=== PATIENT | male | born 1970 | race Caucasian/White ===

== ENCOUNTER 2017-10-21 10:37 | Emergency (ER) | payer MEDICAID ==
[2016-08-17 12:41] VITALS: Wt 112.7 kg
[~2017-10-21 10:37] MED LIST: ACET-2043 PO; ALB18R INH; ALBU2.5V36 IH; ALBU8.5H12 IH; ALL100 PO; ALLO-119 PO; AMLO-96 PO; AMOX-559 PO; AMOX500T10 PO; AMOX875T60 PO; ATOR10TA24 PO; AZI250 PO; AZIT-1 PO; BACL-51 PO; CEPH-13 PO; CEPH500T7 PO; CLI150 PO; COL0.6 PO; COLC0.6T42 PO; CYCL10TA29 PO; ESC10 PO; ESOM40CA42 PO; EYE ANTIBIOTIC OP; GABA-547 PO; HYDR-2966 PO; HYDR-3250 PO; HYDR-3503 PO; HYDR-4309 PO; IBUP800T37; IBUP800T37 PO; INDO-1 PO; INDO25OR3 PO; INDO50CA92 PO; KET10 PO; LAMO100T56 PO; LAMO25TA64 PO; LINA290C PO; LISI-362 PO; LOR5/325 PO; MELO-149 PO; MIRT-17 PO; MULT-893 PO; OMEP-114 PO; OMEP-125 PO; ONDA4TAB97 PO; OXYC-865 PO; PAN40 PO; PHEN100 PO; PHEN100C82 PO; PRED-1 PO; PRED20TA6 PO; PROM-110 PO; RANI-324 PO; ROBC PO; SEIZURE MEDS PO; SUMA100T32 PO; SUMA100T33 PO; TOBOD OS; TOBOO OD; TOPI100C; TRAM-420 PO; TRAZ-133 PO; TRAZ-163 PO; TRIC15T TOP; VENL-10 PO; VENL150C61 PO; VENL75CA4; VENL75CA4 PO; VENL75CA58 PO; [UNRECOGNIZED DRUG - CODE] PO
--- NOTE | 2017-10-21 11:23 | ER Report ---
History and Physical Time Seen By MD: 11:02 Hx. of Stated Complaint: CHEST PAIN SINCE 4:30AM HPI/ROS CHIEF COMPLAINT: Chest pain HISTORY OF PRESENT ILLNESS: 47 year old male presents with concern of right chest pain and RUQ pain. Reports onset 0430 AM today of chest pain with nonproductive, dry cough. Reports diaphoresis, palpitations, denies radiating pain. Pain increases with inspiration. Patient experiences episodes of lightheadedness x6 days. Describes pain as "someone pushing on my chest" and "tight". Reports nausea and diarrhea x5 days, reports black stools. Reports history of acid reflux, pneumonia. REVIEW OF SYSTEMS: Respiratory: Nonproductive, dry cough. Right chest pain increases with inspiration. Cardiovascular: Reports palpitations, diaphoresis, increased chest pressure. Gastrointestinal: Reports vomiting, diarrhea, black in appearance, RUQ pain. History of acid reflux. Musculoskeletal: Reports chronic lower back pain. Denies increased chest pain with movement. 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 10/21/17 Reported Medications Mirtazapine (REMERON) 15 Mg Tab.rapdis, 15 MG PO QHS 08/15/17 Gabapentin (GABAPENTIN) 100 Mg Capsule, 1 TAB PO TID 01/08/17 Past Medical/Surgical History Family history of cancer, coronary artery disease, Hx Smoking: No Smoking Status: Never Smoker Exposure to Second Hand Smoke?: No Hx Substance Use Disorder: No Hx Alcohol Use: Yes (says rarely, did today because of of sister) Constitutional Vital Sign - Last 24 Hours 10/21/17 10/21/17 10/21/17 10/21/17 10:39 10:41 10:52 11:00 Temp 97.4 Pulse 67 69 Resp 18 19 B/P (MAP) 147/94 (111) 147/94 135/98 (110) Pulse Ox 93 94 O2 Delivery Room Air 10/21/17 10/21/17 10/21/17 10/21/17 11:07 11:22 11:30 11:37 Pulse 69 73 72 Resp 14 14 11 B/P (MAP) 127/95 (106) Pulse Ox 92 95 94 10/21/17 10/21/17 10/21/17 10/21/17 12:00 12:07 12:08 12:13 Pulse 71 71 Resp 17 19 B/P (MAP) 123/91 (102) 127/97 (107) Pulse Ox 92 91 10/21/17 10/21/17 10/21/17 10/21/17 12:28 12:30 12:35 12:36 Pulse 73 Resp 19 B/P (MAP) 137/94 (108) 134/87 (103) 126/96 (106) Pulse Ox 91 10/21/17 10/21/17 10/21/17 10/21/17 12:37 12:40 12:43 12:58 Pulse 79 69 70 81 83 Resp 18 19 B/P (MAP) 125/95 (105) 134/87 (103) 126/96 (106) 125/95 (105) Pulse Ox 92 92 10/21/17 210/21/17 10/21/17 13:00 13:13 13:28 13:30 Pulse 67 69 Resp 17 18 B/P (MAP) 132/93 (106) 129/91 (104) Pulse Ox 91 91 Physical Exam General Appearance: The patient is alert, has no immediate need for airway protection and no current signs of toxicity. Eyes: Pupils equal and round no injection. ENT: posterior pharynx pink, tonsils +1 bilaterally, no exudates. No lymphadenopathy. Respiratory: lungs are clear to auscultation. Lung sounds diminished right lobes, anterior and posterior. No wheezing, crackles, rhonchi. Cardiac: regular rate and rhythm, no murmurs, gallops, rubs. Gastrointestinal: Bowel sounds hypoactive all quadrants. Abdomen is soft with RUQ tenderness, no masses. Scattered sounds of tympany and dullness to percussion. Duarte sign negative. Negative hepatosplenomegaly. Musculoskeletal: TTP right anterior chest wall. Skin: No rashes or lesions. DIFFERENTIAL DIAGNOSIS: After history and physical exam differential diagnosis was considered for costochondritis, pneumonia, hepatic inflammation, cholecystitis. Medical Decision Making Data Points Result Diagram: 10/21/17 1054 10/21/17 1054 Laboratory Hematology Test 10/21/17 00:00 10/21/17 10:54 Stool Occult Blood (IFOB) Negative (NEGATIVE) Red Blood Count 5.61 M/uL (4.00-5.60) Mean Corpuscular Volume 90.5 fL (80.0-96.0) Mean Corpuscular Hemoglobin 31.3 pg (26.0-33.0) Mean Corpuscular Hemoglobin Concent 34.5 g/dL (32.0-36.0) Red Cell Distribution Width 14.5 % (11.5-14.5) Mean Platelet Volume 8.2 fL (7.2-11.1) Neutrophils (%) (Auto) 51.4 % (39.4-72.5) Lymphocytes (%) (Auto) 35.0 % (17.6-49.6) Monocytes (%) (Auto) 10.6 % (4.1-12.4) Eosinophils (%) (Auto) 2.4 % (0.4-6.7) Basophils (%) (Auto) 0.6 % (0.3-1.4) Nucleated RBC Relative Count (auto) 0.1 /100WBC Neutrophils # (Auto) 5.0 K/uL (2.0-7.4) Lymphocytes # (Auto) 3.4 K/uL (1.3-3.6) Monocytes # (Auto) 1.0 K/uL (0.3-1.0) Eosinophils # (Auto) 0.2 K/uL (0.0-0.5) Basophils # (Auto) 0.1 K/uL (0.0-0.1) Nucleated RBC Absolute Count (auto) 0.01 K/uL Sodium Level 136 mmol/L (137-145) Potassium Level 3.5 mmol/L (3.5-5.0) Chloride Level 101 mmol/L (98-107) Carbon Dioxide Level 21 mmol/L (22-30) Blood Urea Nitrogen 11 mg/dl (9-21) Creatinine 0.90 mg/dl (0.66-1.25) Glomerular Filtration Rate Calc > 60.0 Random Glucose 149 mg/dl (75-110) Calcium Level 9.8 mg/dl (8.4-10.2) Total Bilirubin 0.9 mg/dl (0.2-1.3) Aspartate Amino Transf (AST/SGOT) 37 U/L (0-35) Alanine Aminotransferase (ALT/SGPT) 58 U/L (0-56) Alkaline Phosphatase 80 U/L (0-126) Troponin I < 0.012 ng/ml C-Reactive Protein < 0.5 mg/dl (<1.0) Total Protein 7.4 gm/dl (6.3-8.2) Albumin 3.9 g/dl (3.5-5.0) Amylase Level < 30 U/L (0-110) Lipase 120 U/L (23-300) Chemistry Test 10/21/17 00:00 10/21/17 10:54 Stool Occult Blood (IFOB) Negative (NEGATIVE) White Blood Count 9.8 k/uL (4.5-11.0) Red Blood Count 5.61 M/uL (4.00-5.60) Hemoglobin 17.6 g/dL (14.0-18.0) Hematocrit 50.8 % (42.0-52.0) Mean Corpuscular Volume 90.5 fL (80.0-96.0) Mean Corpuscular Hemoglobin 31.3 pg (26.0-33.0) Mean Corpuscular Hemoglobin Concent 34.5 g/dL (32.0-36.0) Red Cell Distribution Width 14.5 % (11.5-14.5) Platelet Count 283 K/uL (150-450) Mean Platelet Volume 8.2 fL (7.2-11.1) Neutrophils (%) (Auto) 51.4 % (39.4-72.5) Lymphocytes (%) (Auto) 35.0 % (17.6-49.6) Monocytes (%) (Auto) 10.6 % (4.1-12.4) Eosinophils (%) (Auto) 2.4 % (0.4-6.7) Basophils (%) (Auto) 0.6 % (0.3-1.4) Nucleated RBC Relative Count (auto) 0.1 /100WBC Neutrophils # (Auto) 5.0 K/uL (2.0-7.4) Lymphocytes # (Auto) 3.4 K/uL (1.3-3.6) Monocytes # (Auto) 1.0 K/uL (0.3-1.0) Eosinophils # (Auto) 0.2 K/uL (0.0-0.5) Basophils # (Auto) 0.1 K/uL (0.0-0.1) Nucleated RBC Absolute Count (auto) 0.01 K/uL Glomerular Filtration Rate Calc > 60.0 Calcium Level 9.8 mg/dl (8.4-10.2) Total Bilirubin 0.9 mg/dl (0.2-1.3) Aspartate Amino Transf (AST/SGOT) 37 U/L (0-35) Alanine Aminotransferase (ALT/SGPT) 58 U/L (0-56) Alkaline Phosphatase 80 U/L (0-126) Troponin I < 0.012 ng/ml C-Reactive Protein < 0.5 mg/dl (<1.0) Total Protein 7.4 gm/dl (6.3-8.2) Albumin 3.9 g/dl (3.5-5.0) Amylase Level < 30 U/L (0-110) Lipase 120 U/L (23-300) EKG/Imaging EKG Interpretation 12 lead EKG: Rhythm: normal sinus rhythm with a ventricular rate of 68 bpm [place]: normal QRS: normal ST segments: normal Imaging Exam type: CHEST PA AND LAT History: right chest pain Comparison: 01/08/2017. Findings: Both lungs are well-expanded and clear. There is no focal consolidation, pleural effusion or pneumothorax. Heart size is normal. The osseous structures are unremarkable. IMPRESSION: 1. No acute cardiopulmonary disease. Report Dictated By: Aydin Mancuso MD at 10/21/2017 12:12 PM Report E-Signed By: Aydin Mancuso MD at 10/21/2017 12:13 PM ED Course/Re-evaluation ED Course Patient was admitted in exam room, history and physical were obtained. Differential diagnoses were considered. On examination patient does have right- sided chest pain. He is tender to palpation. A CBC, CMP, troponin, EKG, chest x- ray, occult stool were done. The EKG showed normal sinus rhythm, the lab results were unremarkable. Occult stool was also negative. Patient stated even having black stools for the past several days. On exam the stool appeared to be normal color. We discussed the findings with the patient. We believe this is likely costochondritis as patient does have tenderness especially between ribs 7 and 8 on the right side. We will place him on diclofenac which he is to take twice a day for the next 10 days. Patient is to ice the ribs for 15-20 minutes. Patient verbalized understanding and agreement with plan. Decision to Disposition Date: Oct 21, 2017 Decision to Disposition Time: 13:38 Depart Departure Latest Vital Signs Vital Signs Date Time Temp Pulse Resp B/P (MAP) Pulse Ox O2 Delivery O2 Flow Rate FiO2 10/21/17 13:30 129/91 (104) 10/21/17 13:28 69 18 91 10/21/17 10:41 97.4 Room Air Impression: Primary Impression: Costochondritis, acute Condition: Improved Disposition: HOME OR SELF-CARE Referrals: MARCELLO JENNINGS MD (PCP) New Scripts Diclofenac Sodium (DICLOFENAC SODIUM) 75 Mg Tablet. 75 MG PO BID for 10 Days, #20 TAB Prov: ZULY WILLSON 10/21/17 Patient Instructions: Costochondritis (ED) Additional Instructions: Take prescribed diclofenac twice a day for 7-10 days for inflammation. Recommend icing affected area as needed. Follow up with your primary care provider next week. ZULY WILLSON Oct 21, 2017 11:23
[2017-10-21 12:06] LABS: PLATELET COUNT, AUTOMATED 283 K/uL (150-450)
--- NOTE | 2017-10-21 12:18 | RADIOLOGY IMAGING REPORT ---
FACILITY: [facility] PATIENT NAME: Channing Snyder : 1970 MR: [id number] V: [id number] EXAM DATE: ORDERING PHYSICIAN: ZULY WILLSON TECHNOLOGIST: Location: [facility] [place] Patient: Channing Snyder : 1970 Visit/Account:[id number] Date of Sevice: 10/21/2017 Exam type: CHEST PA AND LAT History: right chest pain Comparison: 01/08/2017. Findings: Both lungs are well-expanded and clear. There is no focal consolidation, pleural effusion or pneumoth orax. Heart size is normal. The osseous structures are unremarkable. IMPRESSION: 1. No acute cardiopulmonary disease. Report Dictated By: Aydin Mancuso MD at 10/21/2017 12:12 PM Report E-Signed By: Aydin Mancuso MD at 10/21/2017 12:13 PM [id number]
--- NOTE | 2017-10-21 12:55 | EKG ---
FACILITY: [facility] PATIENT NAME: CHAVA STEVE : [id number] MR: [id number] V: [id number] EXAM DATE: ORDERING PHYSICIAN: ZULY WILLSON TECHNOLOGIST: LORENA Dickerson Reason : CARDIAC Blood Pressure : / mmHG Vent. Rate : 068 BPM Atrial Rate : 068 BPM P-R Int : 144 ms QRS Dur : 098 ms QT Int : 396 ms P-R-T Axes : 035 021 -18 degrees QTc Int : 421 ms Normal sinus rhythm Nonspecific T wave changes inferolaterally When compared with ECG of 12-AUG-2017 10:23, Previous ECG has undetermined rhythm, needs review Confirmed by ETELVINA ANDRADE ([id number]) on 10/21/2017 3:28:00 PM Referred By: HOSEA Confirmed By:ETELVINA ANDRADE
[2017-10-21 13:30] VITALS: BP 129/91
[2017-10-21] MEDS ORDERED: DICL-195 PO (13:38)
== END 2017-10-21 13:47 | disposition home or self-care (01) ==
LOC: ER 11:11
DX: M94.0 Chondrocostal junction syndrome [Tietze] (principal)
CPT/HCPCS: 71046; 82040; 82150; 82247; 82274; 82310; 82374; 82435; 82565; 82947; 83690; 84075; 84132; 84155; 84295; 84450; 84460; 84484; 84520; 85025; 86140; 93005; 99284

== ENCOUNTER 2018-01-18 17:44 | Emergency (ER) | payer MEDICAID ==
[2016-08-17 12:41] VITALS: Wt 115.2 kg
[~2018-01-18 17:44] MED LIST changes: +DICL-195 PO; -RANI-324 PO; +RANI-366 PO; -TOPI100C; +TOPI100C6
[2018-01-18] MEDS ORDERED: NS(*) 0.9% 1000 ML BAG 1,000 ML IV ONE (18:02)
--- NOTE | 2018-01-18 18:02 | ER Report ---
History and Physical Time Seen By MD: 17:55 Hx. of Stated Complaint: Pt states he isnt able to keep anything down for six days, including his seizure medication. Pt reports a fever earlier. Currently afebrile. HPI/ROS CHIEF COMPLAINT: vomiting, abdominal pain HISTORY OF PRESENT ILLNESS: This is a 47 year old male. He has been having abdominal pain and nausea/vomiting. Seems to have this for the last few days where he has been unable to keep food and liquids down. Has not been feeling well for almost a week. Having diarrhea today. May have had fevers off and on. No current fever. He has no pain with urination. Mild cough, but no shortness of breath or chest pain. REVIEW OF SYSTEMS: Constitutional: As above. Eyes: No vision changes. ENT: No sore throat. No congestion. Cardiovascular: No palpitations. Respiratory: As above. Gastrointestinal: As above. Genitourinary: As above. Musculoskeletal: Diffuse musculoskeletal pain. Skin: No rashes. Neurological: No numbness. No weakness. Allergies: Coded Allergies: tramadol (Verified Allergy, Mild, RASH, 10/21/17) Home Meds Active Scripts Ondansetron (ZOFRAN ODT) 4 Mg Tab.rapdis, 4 MG PO Q6H Y for NAUSEA/VOMITING, # 20 TAB.PRASHANTH 0 Refills Prov:ERNESTO GUZMAN MD 01/18/18 Diclofenac Sodium (DICLOFENAC SODIUM) 75 Mg Tablet.dr, 75 MG PO BID for 10 Days , #20 TAB Prov:ZULY WILLSON [facility] 10/21/17 Reported Medications Mirtazapine (REMERON) 15 Mg Tab.rapdis, 15 MG PO QHS 08/15/17 Gabapentin (GABAPENTIN) 100 Mg Capsule, 1 TAB PO TID 01/08/17 Reviewed Nurses Notes: Yes Hx Smoking: No Smoking Status: Never Smoker Exposure to Second Hand Smoke?: No Hx Substance Use Disorder: No Hx Alcohol Use: Yes (says rarely, did today because of of sister) Constitutional Vital Sign - Last 24 Hours 01/18/18 01/18/18 01/18/18 01/18/18 17:51 17:52 17:54 17:59 Temp 98.1 Pulse 90 100 Resp 16 B/P (MAP) 135/89 (104) 135/89 129/100 (110) Pulse Ox 91 89 O2 Delivery Room Air 01/18/18 01/18/18 01/18/18 01/18/18 18:00 18:14 18:29 18:30 Pulse 92 90 B/P (MAP) 131/91 (104) 125/91 (102) Pulse Ox 91 91 01/18/18 01/18/18 01/18/18 01/18/18 18:44 18:59 19:00 19:14 Pulse 87 86 B/P (MAP) 124/95 (105) Pulse Ox 93 93 94 01/18/18 01/18/18 01/18/18 01/18/18 19:29 19:30 19:35 19:50 Pulse 89 90 77 B/P (MAP) 138/97 (111) Pulse Ox 94 94 94 01/18/18 01/18/18 01/18/18 01/18/18 20:00 20:05 20:20 20:30 Pulse 87 109 B/P (MAP) 149/100 (116) 126/81 (96) Pulse Ox 94 91 01/18/18 20:35 Pulse 97 Pulse Ox 94 Intake and Output 01/18/18 01/18/18 01/19/18 15:00 23:00 07:00 Intake Total 900 ml Balance 900 ml Physical Exam General Appearance: The patient is alert. No acute distress. Eyes: Pupils are equal, round. No pallor, injection or icterus. ENT: Mucous membranes are moist. Normal oral mucosa. Posterior oropharynx is normal. Neck: Supple and non tender. Respiratory: Lungs are clear to auscultation. Cardiovascular: Regular rate and rhythm. No murmurs, gallops or rubs. Normal capillary refill. Gastrointestinal: Diffuse abdominal discomfort, but no focal areas of pain. Nondistended. No rebound or guarding. No masses or organomegaly. Normal active bowel sounds. No costovertebral angle tenderness with percussion. Neurological: Alert and oriented x3. Skin: Warm and dry. DIFFERENTIAL DIAGNOSIS: After history and physical exam, differential diagnosis was considered for abdominal pain including but not limited to appendicitis, cholecystitis, gastritis and urinary tract infection. Medical Decision Making Data Points Result Diagram: 01/18/186 01/18/18 181 Laboratory Hematology Test 01/18/18 18:16 01/18/18 20:30 Red Blood Count 5.41 M/uL (4.00-5.60) Mean Corpuscular Volume 90.6 fL (80.0-96.0) Mean Corpuscular Hemoglobin 31.7 pg (26.0-33.0) Mean Corpuscular Hemoglobin Concent 35.0 g/dL (32.0-36.0) Red Cell Distribution Width 13.6 % (11.5-14.5) Mean Platelet Volume 8.0 fL (7.2-11.1) Neutrophils (%) (Auto) 63.3 % (39.4-72.5) Lymphocytes (%) (Auto) 21.3 % (17.6-49.6) Monocytes (%) (Auto) 8.5 % (4.1-12.4) Eosinophils (%) (Auto) 5.8 % (0.4-6.7) Basophils (%) (Auto) 1.1 % (0.3-1.4) Nucleated RBC Relative Count (auto) 0.1 /100WBC Neutrophils # (Auto) 8.8 K/uL (2.0-7.4) Lymphocytes # (Auto) 2.9 K/uL (1.3-3.6) Monocytes # (Auto) 1.2 K/uL (0.3-1.0) Eosinophils # (Auto) 0.8 K/uL (0.0-0.5) Basophils # (Auto) 0.1 K/uL (0.0-0.1) Nucleated RBC Absolute Count (auto) 0.02 K/uL Sodium Level 138 mmol/L (137-145) Potassium Level 3.9 mmol/L (3.5-5.0) Chloride Level 98 mmol/L (98-107) Carbon Dioxide Level 26 mmol/L (22-30) Blood Urea Nitrogen 15 mg/dl (9-21) Creatinine 0.80 mg/dl (0.66-1.25) Glomerular Filtration Rate Calc > 60.0 Random Glucose 160 mg/dl (75-110) Calcium Level 10.3 mg/dl (8.4-10.2) Total Bilirubin 0.9 mg/dl (0.2-1.3) Aspartate Amino Transf (AST/SGOT) 29 U/L (0-35) Alanine Aminotransferase (ALT/SGPT) 53 U/L (0-56) Alkaline Phosphatase 93 U/L (0-126) C-Reactive Protein 1.0 mg/dl (<1.0) Total Protein 7.5 gm/dl (6.3-8.2) Albumin 4.1 g/dl (3.5-5.0) Amylase Level 59 U/L (0-110) Lipase 75 U/L (23-300) Urine Color Yellow Urine Clarity Clear Urine pH 6.0 pH (4.8-9.5) Urine Specific [place] >1.060 Urine Protein Negative mg/dL (NEGATIVE) Urine Glucose (UA) Negative mg/dL (NEGATIVE) Urine Ketones Negative mg/dL (NEGATIVE) Urine Blood Negative (NEGATIVE) Urine Nitrite Negative (NEGATIVE) Urine Bilirubin Negative (NEGATIVE) Urine Urobilinogen Negative mg/dL (0.2-1.9) Urine Leukocyte Esterase Negative (NEGATIVE) Urine RBC None /HPF (0-2/HPF) Urine WBC <1 /HPF (0-5/HPF) Urine Squamous Epithelial Cells None /LPF (</=FEW) Urine Bacteria Negative /HPF (NONE-FEW) Urine Mucus Few /HPF (NONE-FEW) Chemistry Test 01/18/18 18:16 01/18/18 20:30 White Blood Count 13.8 k/uL (4.5-11.0) Red Blood Count 5.41 M/uL (4.00-5.60) Hemoglobin 17.1 g/dL (14.0-18.0) Hematocrit 49.0 % (42.0-52.0) Mean Corpuscular Volume 90.6 fL (80.0-96.0) Mean Corpuscular Hemoglobin 31.7 pg (26.0-33.0) Mean Corpuscular Hemoglobin Concent 35.0 g/dL (32.0-36.0) Red Cell Distribution Width 13.6 % (11.5-14.5) Platelet Count 279 K/uL (150-450) Mean Platelet Volume 8.0 fL (7.2-11.1) Neutrophils (%) (Auto) 63.3 % (39.4-72.5) Lymphocytes (%) (Auto) 21.3 % (17.6-49.6) Monocytes (%) (Auto) 8.5 % (4.1-12.4) Eosinophils (%) (Auto) 5.8 % (0.4-6.7) Basophils (%) (Auto) 1.1 % (0.3-1.4) Nucleated RBC Relative Count (auto) 0.1 /100WBC Neutrophils # (Auto) 8.8 K/uL (2.0-7.4) Lymphocytes # (Auto) 2.9 K/uL (1.3-3.6) Monocytes # (Auto) 1.2 K/uL (0.3-1.0) Eosinophils # (Auto) 0.8 K/uL (0.0-0.5) Basophils # (Auto) 0.1 K/uL (0.0-0.1) Nucleated RBC Absolute Count (auto) 0.02 K/uL Glomerular Filtration Rate Calc > 60.0 Calcium Level 10.3 mg/dl (8.4-10.2) Total Bilirubin 0.9 mg/dl (0.2-1.3) Aspartate Amino Transf (AST/SGOT) 29 U/L (0-35) Alanine Aminotransferase (ALT/SGPT) 53 U/L (0-56) Alkaline Phosphatase 93 U/L (0-126) C-Reactive Protein 1.0 mg/dl (<1.0) Total Protein 7.5 gm/dl (6.3-8.2) Albumin 4.1 g/dl (3.5-5.0) Amylase Level 59 U/L (0-110) Lipase 75 U/L (23-300) Urine Color Yellow Urine Clarity Clear Urine pH 6.0 pH (4.8-9.5) Urine Specific [place] >1.060 Urine Protein Negative mg/dL (NEGATIVE) Urine Glucose (UA) Negative mg/dL (NEGATIVE) Urine Ketones Negative mg/dL (NEGATIVE) Urine Blood Negative (NEGATIVE) Urine Nitrite Negative (NEGATIVE) Urine Bilirubin Negative (NEGATIVE) Urine Urobilinogen Negative mg/dL (0.2-1.9) Urine Leukocyte Esterase Negative (NEGATIVE) Urine RBC None /HPF (0-2/HPF) Urine WBC <1 /HPF (0-5/HPF) Urine Squamous Epithelial Cells None /LPF (</=FEW) Urine Bacteria Negative /HPF (NONE-FEW) Urine Mucus Few /HPF (NONE-FEW) Urinalysis Test 01/18/18 20:30 Urine Color Yellow Urine Clarity Clear Urine pH 6.0 pH (4.8-9.5) Urine Specific [place] >1.060 Urine Protein Negative mg/dL (NEGATIVE) Urine Glucose (UA) Negative mg/dL (NEGATIVE) Urine Ketones Negative mg/dL (NEGATIVE) Urine Blood Negative (NEGATIVE) Urine Nitrite Negative (NEGATIVE) Urine Bilirubin Negative (NEGATIVE) Urine Urobilinogen Negative mg/dL (0.2-1.9) Urine Leukocyte Esterase Negative (NEGATIVE) Urine RBC None /HPF (0-2/HPF) Urine WBC <1 /HPF (0-5/HPF) Urine Squamous Epithelial Cells None /LPF (</=FEW) Urine Bacteria Negative /HPF (NONE-FEW) Urine Mucus Few /HPF (NONE-FEW) EKG/Imaging Imaging CT abdomen and pelvis with IV contrast Indication: Abdominal pain. Comparison: None available. . Technique: Axial CT images were obtained through the abdomen and pelvis during injection of nonionic iodinated intravenous contrast. Reformatted coronal and sagittal images were also obtained. One of the following dose optimization techniques was utilized in the performance of this exam: Automated exposure control; adjustment of the mA and/ or kV according to the patient's size; or use of an iterative reconstruction technique. Specific details can be referenced in the facility's radiology CT exam operational policy. Contrast: 75 ml of Isovue-370 IV contrast. Findings: Lower lung mendez: Limited views lower lung field are unremarkable. Liver: Liver is mildly diffusely hypodense without focal lesion. Mild focal fatty sparing around gallbladder fossa. Biliary: Tiny gallstone without other gallbladder or biliary abnormality. Pancreas: Normal appearance. Spleen: Normal appearance. Adrenal glands: Unremarkable. Kidneys / retroperitoneum: No evidence of nephrolithiasis or hydronephrosis. No focal normality. Bowel / peritoneum / mesenteries: There are a few diverticula seen along the sigmoid colon without pericolonic inflammation. The colon shows no other focal abnormality. The appendix is normal. Small bowel shows no focal abnormality or obstruction. Stomach is unremarkable. No free air, free fluid, fluid collections or areas of inflammation. Small umbilical hernia containing fat. Lymph node assessment: No pathologic adenopathy identified. Pelvic structures: Appear unremarkable. Vessels: No significant atherosclerotic calcifications seen throughout a nonaneurysmal abdominal aorta and branches. Incidental note of 2 left renal veins, one anterior to the aorta and one posterior. Musculoskeletal / Body wall: No acute or aggressive osseous abnormality. IMPRESSION: 1. No acute intra-abdominal abnormality 2. Sigmoid diverticulosis without radiographic indication of diverticulitis. 3. Cholelithiasis. 4. Diffusely mildly hypodense liver consistent with fatty infiltration or chronic disease. Focal fatty sparing around gallbladder fossa. Report Dictated By: Aydin Moss at 01/18/2018 7:09 PM ED Course/Re-evaluation Clinical Indication for ER IV: Hydration, IV Access ED Course Imaging shows evidence of cholelithiasis, but this does not seem to be the reason for his pain tonight. He appears to likely have a gastroenteritis. He felt better after IV fluids and Zofran. Recommended follow-up with general surgery for further evaluation of the gallbladder. Decision to Disposition Date: January 18, 2018 Decision to Disposition Time: 20:13 Depart Departure Latest Vital Signs Vital Signs Date Time Temp Pulse Resp B/P (MAP) Pulse Ox O2 Delivery O2 Flow Rate FiO2 01/18/18 20:35 97 94 01/18/18 20:30 126/81 (96) 01/18/18 17:52 98.1 16 Room Air Impression: Primary Impression: Gastroenteritis Condition: Improved Disposition: HOME OR SELF-CARE Referrals: MARCELLO JENNINGS MD (PCP) New Scripts Ondansetron (ZOFRAN ODT) 4 Mg Tab.rapdis 4 MG PO Q6H Y for NAUSEA/VOMITING, #20 TAB.PRASHANTH 0 Refills Prov: ERNESTO GUZMAN MD 01/18/18 Patient Instructions: Gastroenteritis (ED) Additional Instructions: Rest and increase fluid intake. Take Zofran 4mg, one every 6 hours as needed for nausea and vomiting. This should improve over the next 24-48 hours. Take Tylenol or Ibuprofen as needed for pain. Follow-up with your primary care provider in the next 1-2 weeks for re- evaluation. CT scan showed evidence of gallstones in the gallbladder as well. Consider follow-up with one of the general surgeons for evaluation for elective removal of the gallbladder if this is giving you problems. We recommend a low-fat diet for patients with gallstones. ERNESTO GUZMAN MD January 18, 2018 18:02
[2018-01-18] MEDS ORDERED: PANTOPRAZOLE SOD 40 MG IV VIAL IVP ONE (18:05)
[2018-01-18] MEDS ORDERED: ONDANSETRON 4 MG/2 ML VIAL IVP ONE (18:05)
[2018-01-18 18:23] LABS: PLATELET COUNT, AUTOMATED 279 K/uL (150-450)
[2018-01-18] MEDS ORDERED: IOPAMIDOL 76% 75 ML INFUS BTL 75 ML ONE (18:50)
--- NOTE | 2018-01-18 19:18 | RADIOLOGY IMAGING REPORT ---
FACILITY: [facility] - [place] PATIENT NAME: Channing Snyder : 1970 MR: [id number] V: [id number] EXAM DATE: ORDERING PHYSICIAN: ERNESTO GUZMAN TECHNOLOGIST: Location: [facility] [place] Patient: Channing Snyder : 1970 Visit/Account:[id number] Date of Sevice: 01/18/2018 CT abdomen and pelvis with IV contrast Indication: Abdominal pain. Comparison: None available. . Technique: Axial CT images were obtained through the abdomen and pelvis during injection of nonioni c iodinated intravenous contrast. Reformatted coronal and sagittal images were also obtained. One of the following dose optimization techniques was utilized in the performance of this exam: Autom ated exposure control; adjustment of the mA and/or kV according to the patient's size; or use of an i terative reconstruction technique. Specific details can be referenced in the facility's radiology C T exam operational policy. Contrast: 75 ml of Isovue-370 IV contrast. Findings: Lower lung mendez: Limited views lower lung field are unremarkable. Liver: Liver is mildly diffusely hypodense without focal lesion. Mild focal fatty sparing around gall bladder fossa. Biliary: Tiny gallstone without other gallbladder or biliary abnormality. Pancreas: Normal appearance. Spleen: Normal appearance. Adrenal glands: Unremarkable. Kidneys / retroperitoneum: No evidence of nephrolithiasis or hydronephrosis. No focal normality. Bowel / peritoneum / mesenteries: There are a few diverticula seen along the sigmoid colon without pe ricolonic inflammation. The colon shows no other focal abnormality. The appendix is normal. Small bow el shows no focal abnormality or obstruction. Stomach is unremarkable. No free air, free fluid, fluid collections or areas of inflammation. Small umbilical hernia containin g fat. Lymph node assessment: No pathologic adenopathy identified. Pelvic structures: Appear unremarkable. Vessels: No significant atherosclerotic calcifications seen throughout a nonaneurysmal abdominal aort a and branches. Incidental note of 2 left renal veins, one anterior to the aorta and one posterior. Musculoskeletal / Body wall: No acute or aggressive osseous abnormality. IMPRESSION: 1. No acute intra-abdominal abnormality 2. Sigmoid diverticulosis without radiographic indication of diverticulitis. 3. Cholelithiasis. 4. Diffusely mildly hypodense liver consistent with fatty infiltration or chronic disease. Focal fatt y sparing around gallbladder fossa. Report Dictated By: Aydin Moss at 01/18/2018 7:09 PM Report E-Signed By: Aydin Moss at 01/18/2018 7:15 PM WSN:[id number]
[2018-01-18] MEDS ORDERED: ONDA4TAB PO (20:16)
[2018-01-18] MEDS ORDERED: ONDANSETRON 4 MG ODT TH SL ONE (20:20)
[2018-01-18 20:30] VITALS: BP 126/81
== END 2018-01-18 20:52 | disposition home or self-care (01) ==
LOC: ER 17:58
DX: K52.9 Noninfective gastroenteritis and colitis, unspecified (principal)
CPT/HCPCS: 81001; 82150; 83690; 85025; 86140; 96361; 96374; 96375; 99284; C9113; J2405; J7030; Q9967; S0119; 74177; 82040; 82247; 82310; 82374; 82435; 82565; 82947; 84075; 84132; 84155; 84295; 84450; 84460; 84520

== ENCOUNTER 2018-03-08 01:30 | Observation (INO) | payer MEDICAID ==
[2016-08-17 12:41] VITALS: Ht 170.2 cm; Wt 115.4 kg
[~2018-03-08] VITALS: Ht 170.2 cm; Wt 115.4 kg
[2018-03-08] VITALS (9 sets, daily range): BP systolic 116–134; BP diastolic 74–94
[~2018-03-08 01:30] MED LIST changes: +ALLO100T70 PO; +ATOR10TA65 PO; +IBUP-136 PO; +INDO-21 PO; +INDO-23 PO; +ONDA4TAB PO; -TRAZ-163 PO; +TRAZ100T31 PO
[2018-03-08] MEDS ORDERED: ACETAMINOPHEN 500 MG TAB PO ONE (10:30)
[2018-03-08] MEDS ORDERED: PREGABALIN 150 MG CAPSULE PO ONE (10:30)
[2018-03-08] MEDS ORDERED: AMPICILLIN/SULBACT (*) 3 GM VL 3 GM in NS(*) 0.9% 100 ML BAG 100 ML IVPB ONE (11:00)
[2018-03-08] MEDS ORDERED: INDOCYANINE GREEN 25 MG VIAL IVP ONE (11:00)
[2018-03-08] MEDS ORDERED: FAMOTIDINE 20 MG TAB PO ONE (11:00)
[2018-03-08] MEDS ORDERED: NORMOSOL R SOLN(*) 1000 ML BAG 1,000 ML IV PRN (11:00)
[2018-03-08] MEDS ORDERED: LIDOCAINE/SOD BICARB 8.4% SYR ID ONE (11:00)
[2018-03-08] MEDS ORDERED: MIDAZOLAM 2 MG/2 ML VIAL IVP PRN ×2 (11:00→18:20)
[2018-03-08] MEDS ORDERED: fentaNYL CITR 250 MCG/5 ML AMP ONE (12:32)
[2018-03-08] MEDS ORDERED: LIDOCAINE 2% IV 100 MG/5ML SYR ONE (12:33)
[2018-03-08] MEDS ORDERED: PROPOFOL EMUL(*) 10MG/ML 20 ML 20 ML ONE (12:38)
[2018-03-08] MEDS ORDERED: ROPIVACAINE 0.5% 20 ML VIAL ONE (13:45)
[2018-03-08] MEDS ORDERED: IOPAMIDOL 61% 75 ML INFUS BTL 75 ML ONE (17:40)
[2018-03-08] MEDS ORDERED: ONDANSETRON 4 MG/2 ML VIAL ONE (17:41)
[2018-03-08] MEDS ORDERED: DEXAMETHASONE SOD 4 MG/ML VIAL ONE (17:41)
[2018-03-08] MEDS ORDERED: KETAMINE HCL 200 MG/20 ML MDV ONE (17:43)
[2018-03-08] MEDS ORDERED: SUGAMMADEX SOD 200 MG/2 ML SDV ONE (17:49)
[2018-03-08] MEDS ORDERED: fentaNYL CITR 100 MCG/2 ML AMP ONE ×2 (18:19→19:58)
[2018-03-08] MEDS ORDERED: FLUSH 10 ML SYR IVP PRN (19:20)
[2018-03-08] MEDS ORDERED: ONDANSETRON 4 MG/2 ML VIAL IVP PRN (19:20)
[2018-03-08] MEDS ORDERED: MORPHINE 2 MG/ML SYR IVP PRN (19:20)
[2018-03-08] MEDS ORDERED: NS(*) 0.9% 1000 ML BAG 1,000 ML IV PRN (19:20)
--- NOTE | 2018-03-08 19:31 | Post Operative Progress Note ---
Post Operative Progress Note Date: Mar 08, 2018 Time: 19:23 Surgeon: Herlinda Dictation number: [id number] Anesthesia: GETA by Dr. Ford Pre-Op Diagnosis: Symptomatic Gallstones Post-Op Diagnosis: POLO Findings: C/W dx Procedure(s): Robotic cholecystectomy Specimen Removed:(May be N/A): GB and contents Complications: None Fluids: See anesthesia record Estimated Blood Loss: Minimal Date OP Note Dictated: Mar 08, 2018 Time OP Note Dictated: 19:24 MARCELLO DUMONT MD Mar 08, 2018 19:31
--- NOTE | 2018-03-08 20:46 | OPERATIVE REPORT 1 ---
EVENT DATE: March 08, 2018 SURGEON: Anders Pate MD ANESTHESIOLOGIST: Mason Ford MD ANESTHESIA: General endotracheal anesthesia. PREOPERATIVE DIAGNOSIS Symptomatic gallstones. POSTOPERATIVE DIAGNOSIS Symptomatic gallstones. PROCEDURE PERFORMED Robotic cholecystectomy. COMPLICATIONS None. CONDITION Stable. BLOOD LOSS Minimal. INDICATIONS This is a 47-year-old gentleman who was referred to my office from the Emergency Room after having had multiple episodes of right upper quadrant abdominal pain. He underwent a CT scan which revealed gallstones, but no other obvious pathology to explain his symptoms. The patient's symptoms were mainly postprandial. He had right upper quadrant tenderness to palpation in the clinic. He was then scheduled for a cholecystectomy and consented for same. DESCRIPTION OF PROCEDURE The patient was brought to the operating room and placed supine on the operating table. General endotracheal anesthesia was administered, and his abdomen was prepped and draped in a sterile fashion. A timeout was completed. I injected the infraumbilical skin with 0.5% ropivacaine plain. I made a curvilinear smiley face type incision in the infraumbilical rim and dissected through the dermis into the subcutaneous fat. I dissected all the way down to the midline fascia, made a vertical incision in the midline fascia, grasped the fascial edges with Andrew clamps, and retracted the fascia away from the underlying viscera and towards the ceiling. I then used my finger to penetrate the peritoneum and then placed two interrupted 0 Vicryl sutures transversely through the vertical fascial defect, one cephalad and one caudad. I inserted a 12 mm robotic Curt-type port through this wound, secured it in place with sutures, and insufflated the abdomen to a pressure of 15 mmHg. The robotic camera was inserted in through this port, and gross inspection of the abdominal cavity did not reveal any obvious evidence of pathology or interrelated injuries. I then placed an 8 mm robotic port in the right mid abdomen and two 8 mm ports in the left abdomen, one in the left upper lateral quadrant and one in the left mid abdomen. I then had the patient placed in reverse Trendelenburg and planed towards his left to remove the viscera from the right upper quadrant. I then moved the robot in, docked it, inserted the camera, then targeted it, and then inserted the instruments into the ports. I then scrubbed out and went to the console. I then grasped the fundus of the gallbladder and retracted it towards the patient's right shoulder. I then attempted to grasp the infundibulum, but it was too thick, and there was too much fat on it. I used the hook to clean off the infundibulum and make it easier to grasp. Then, I divided the peritoneum from both the medial and lateral aspects of the gallbladder. I then stripped the peritoneum and subperitoneal fat down off the infundibulum, down off the cystic duct, and used the Firefly to be able to identify the cystic duct. I could also see the common bile duct and know that I was well away from it. Once the cystic duct was cleaned off circumferentially, I clipped it with two clips distally and one clip at the infundibulum-cystic duct junction and divided it between the upper two clips. The cystic artery was very small, and it was controlled easily with electrocautery. I then divided the posterior attachments of the gallbladder and it from the gallbladder fossa and then placed the gallbladder in a surgical specimen retrieval bag and removed it from the abdomen through the umbilical port site. I irrigated and dried the right upper quadrant and then made sure there was no bile leaks or bleeding from either the gallbladder fossa or down on the cystic duct and arteries, and there was not. I then placed Amanda hemostatic powder down in the gallbladder fossa and down by the portal triad because of all of the fat, and I wanted to make sure there were no oozing. I then removed all of the instruments, undocked the robot, removed the ports, desufflated the abdomen, and then closed the midline fascia with a running 0 Vicryl suture. I then tied all three of these down with good reapproximation of the fascial edges with no remaining fascial defect. I then closed the skin at each port site with 4-0 Monocryl running subcuticular suture. The skin was cleaned and dried. Steri-Strips were applied, followed by sterile surgical dressings. The patient was awakened and extubated in the operating room and transported to the recovery room in stable condition, having tolerated the procedure without apparent problems. SERGEI
[2018-03-08] MEDS ORDERED: ATORVASTATIN 10 MG TAB PO SCH (21:00)
[2018-03-08] MEDS: FAMOTIDINE 20 MG TAB PO SCH (21:50)
[2018-03-08] MEDS: GABAPENTIN 100 MG CAP PO SCH (21:50)
[2018-03-08] MEDS: DOCUSATE SODIUM 100 MG CAP PO SCH (21:50)
[2018-03-09] VITALS: BP 116/85
[2018-03-09 01:00] VITALS: BP 127/72
[2018-03-09 02:00] VITALS: BP 110/72
[2018-03-09 03:00] VITALS: BP 105/77
[2018-03-09 06:43] VITALS: BP 122/76
[2018-03-09] MEDS ORDERED: DOCU-202 PO (08:17)
[2018-03-09] MEDS ORDERED: PER PO (08:17)
--- NOTE | 2018-03-09 08:20 | Short(Outpt) Discharge Summary ---
Discharge Summary Reason for Hosp/Final Diag: (1) Symptomatic cholelithiasis Status: Chronic Hospital Course & Plan: Robotic benito completed without problems. Pt did well overnight. Will d/c to home this morning. Departure Discharge to: Home, Self Care Discharge Instructions Home Meds Active Scripts Oxycodone/Acetaminophen (OXYCODONE/ACETAMINOPHEN 5MG/325 MG) 5 Mg/325 Mg Tab, 1- 2 TAB PO Q4H Y for MODERATE PAIN, #30 TAB 0 Refills Prov:MARCELLO DUMONT MD 03/09/18 Docusate Sodium (DOCUSATE SODIUM) 100 Mg Capsule, 1 CAP PO BID, #30 CAPSULE 0 Refills Prov:MARCELLO DUMONT MD 03/09/18 Ondansetron (ZOFRAN ODT) 4 Mg Tab.rapdis, 4 MG PO Q6H Y for NAUSEA/VOMITING, # 20 TAB.PRASHANTH 0 Refills Prov:ERNESTO GUZMAN MD 01/18/18 Reported Medications Indomethacin (INDOMETHACIN) 50 Mg Capsule, 50 MG PO TID Y for prn, CAPSULE 02/27/18 Allopurinol (ALLOPURINOL) 100 Mg Tablet, 600 MG PO QDAY, TAB 02/27/18 Venlafaxine Hcl (EFFEXOR XR) 75 Mg Cap.er.24h, 75 MG PO QDAY 02/27/18 Atorvastatin Calcium (ATORVASTATIN CALCIUM) 10 Mg Tablet, 1 TAB PO HS, TAB 02/27/18 Ibuprofen (IBUPROFEN) 200 Mg Capsule, 1-2 CAP PO Q6H Y for prn, CAPSULE 02/27/18 Gabapentin (GABAPENTIN) 100 Mg Capsule, 1 TAB PO TID 01/08/17 Follow up Referrals: General Surgery - 03/28/18 @ Surgery, General with Marcello Dumont Md You have a follow up appointment scheduled with Dr. Dumont on 03/28/18, at 3: 45pm. Diet: Regular Activity: As Tolerated Special Instructions: You may remove the white surgical dressings on 03/10/18, then you can shower. After showering, leave the incisions open to air but leave the steristrips in place until they fall off on their own. Do not immerse the incisions for 2 weeks. MARCELLO DUMONT MD Mar 09, 2018 08:20
[2018-03-09] MEDS ORDERED: VENLAFAXINE XR 75 MG CAPCR PO SCH (09:00)
[2018-03-09] MEDS ORDERED: ALLOPURINOL 300 MG TAB PO SCH (09:00)
[2018-03-09] MEDS: FAMOTIDINE 20 MG TAB PO SCH (09:24)
[2018-03-09] MEDS: GABAPENTIN 100 MG CAP PO SCH (09:24)
[2018-03-09] MEDS: DOCUSATE SODIUM 100 MG CAP PO SCH (09:24)
[2018-03-09 11:14] VITALS: BP 110/72
== END 2018-03-09 08:15 | disposition home or self-care (01) ==
LOC: OR 01:30 → MED 20:45
PROVIDERS: ADMIT Surgery; ATTEND Surgery
DX: K80.80 Other cholelithiasis without obstruction (principal)
CPT/HCPCS: 47562; 88304; G0378; J0295; J1100; J2001; J2250; J2405; J2704; J2795; J3010; J3490; J7050; Q9967; S2900

== ENCOUNTER 2018-04-26 16:46 | Emergency (ER) | payer MEDICAID ==
[2016-08-17 12:41] VITALS: Wt 115.7 kg
[~2018-04-26 16:46] MED LIST changes: +DOCU-202 PO; +PER PO
[2018-04-26] MEDS ORDERED: ASPIRIN 81 MG CHEW PO ONE (17:10)
[2018-04-26] MEDS ORDERED: ACETAMINOPHEN 325 MG TAB PO ONE (17:10)
[2018-04-26] MEDS ORDERED: NITROGLYCERIN 0.4 MG SUBL SL SCH (17:10)
[2018-04-26 17:18] LABS: PLATELET COUNT, AUTOMATED 343 K/uL (150-450)
--- NOTE | 2018-04-26 17:27 | ER Report ---
History and Physical Time Seen By MD: 16:59 Hx. of Stated Complaint: PATIENT REPORTS THE HE WOKE UP WITH CHEST PAIN AT 0700 THIS MORNING (ELVIA XIAO MD) HPI/ROS CHIEF COMPLAINT: Chest pain HISTORY OF PRESENT ILLNESS: Patient states he woke up at 7 AM with left sided chest pain that radiates to his arm. He has not had similar chest pain. Chest pain is 7 out of 10 and feels sharp. Pain has been constant throughout the day. 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 It is associated with some shortness of breath and some lightheadedness. Patient has had prior stress test 2 years ago which was reportedly negative, no prior cardiac catheter, no prior [place]. He reports that cardiac disease runs in his family and reports he had a younger sister who 2-1/2 years ago from [place]. Patient has had no recent travel, denies headache, fever, cough, trauma, abdominal pain, nausea, vomiting or extremity symptoms. REVIEW OF SYSTEMS: Constitutional: No fever, no chills. Eyes: No discharge. ENT: No sore throat. Cardiovascular: above Respiratory: mild sob with chest pain Gastrointestinal: No abdominal pain, no vomiting. Genitourinary: No hematuria. Musculoskeletal: No back pain, no radiation to back Skin: No rashes. Neurological: No headache. Remainder of the 14 system rev: Yes (ELVIA XIAO MD) Allergies: Coded Allergies: tramadol (Verified Allergy, Mild, RASH, 10/21/17) Home Meds Active Scripts Oxycodone/Acetaminophen (OXYCODONE/ACETAMINOPHEN 5MG/325 MG) 5 Mg/325 Mg Tab, 1- 2 TAB PO Q4H PRN for MODERATE PAIN, #30 TAB 0 Refills Prov:MARCELLO DUMONT MD 03/09/18 Docusate Sodium (DOCUSATE SODIUM) 100 Mg Capsule, 1 CAP PO BID, #30 CAPSULE 0 Refills Prov:MARCELLO DUMONT MD 03/09/18 Ondansetron (ZOFRAN ODT) 4 Mg Tab.rapdis, 4 MG PO Q6H PRN for NAUSEA/VOMITING, #20 TAB.PRASHANTH 0 Refills Prov:ERNESTO GUZMAN MD 01/18/18 Reported Medications Indomethacin (INDOMETHACIN) 50 Mg Capsule, 50 MG PO TID PRN for prn, CAPSULE 02/27/18 Allopurinol (ALLOPURINOL) 100 Mg Tablet, 600 MG PO QDAY, TAB 02/27/18 Venlafaxine Hcl (EFFEXOR XR) 75 Mg Cap.er.24h, 75 MG PO QDAY 02/27/18 Atorvastatin Calcium (ATORVASTATIN CALCIUM) 10 Mg Tablet, 1 TAB PO HS, TAB 02/27/18 Ibuprofen (IBUPROFEN) 200 Mg Capsule, 1-2 CAP PO Q6H PRN for prn, CAPSULE 02/27/18 Gabapentin (GABAPENTIN) 100 Mg Capsule, 1 TAB PO TID 01/08/17 Past Medical/Surgical History seizure hx, htn (ELVIA XIAO MD) Reviewed Nurses Notes: Yes Old Medical Records Reviewed: Yes (ELVIA XIAO MD) Hx Smoking: No Smoking Status: Never Smoker Exposure to Second Hand Smoke?: No Hx Substance Use Disorder: No Hx Alcohol Use: Yes (says rarely, did today because of of sister) (ELVIA XIAO MD) Constitutional Vital Sign - Last 24 Hours 04/26/18 04/26/18 04/26/18 04/26/18 16:46 16:49 16:52 17:00 Temp 97.5 Pulse ??? Resp 24 B/P (MAP) 128/91 128/91 (103) 120/90 (100) Pulse Ox 91 04/26/18 04/26/18 04/26/18 04/26/18 17:16 17:30 17:34 17:40 Resp 19 B/P (MAP) 129/97 (108) 119/83 (95) 123/78 (93) Pulse Ox 89 04/26/18 04/26/18 04/26/18 04/26/18 17:46 18:00 18:16 18:30 Pulse 91 68 Resp 28 18 B/P (MAP) 92/72 (79) 99/70 (80) 107/78 (88) Pulse Ox 88 95 04/26/18 04/26/18 04/26/18 04/26/18 18:35 18:50 19:00 19:05 Pulse 68 69 70 Resp 17 17 16 B/P (MAP) 105/75 (85) Pulse Ox 95 96 96 04/26/18 04/26/18 04/26/18 04/26/18 19:10 19:25 19:30 19:40 Pulse 69 72 70 Resp 18 17 17 B/P (MAP) 102/76 (85) Pulse Ox 96 96 96 04/26/18 04/26/18 04/26/18 04/26/18 19:55 20:00 20:10 20:25 Pulse 69 67 68 Resp 16 16 18 B/P (MAP) 108/71 (83) Pulse Ox 96 95 96 (HOUSTON CINTRON DO) Physical Exam General Appearance: [The patient is alert, has no immediate need for airway protection and no signs of toxicity.] [ ] Eyes: Pupils equal and round no pallor or injection. ENT, Mouth: Mucous membranes are moist. Respiratory: There are no retractions, lungs are clear to auscultation. Cardiovascular: Regular rate and rhythm. no carotid bruits; l side chest wall palpation completely reproduces pain; no contusions, rash, ecchymosis Gastrointestinal: Abdomen is soft and non tender, no masses, bowel sounds normal. Neurological: alert, oriented x 3, no gross focal deficits Skin: Warm and dry, no rashes. Musculoskeletal: Neck is supple non tender. Extremities are nontender, nonswollen and have full range of motion. DIFFERENTIAL DIAGNOSIS: After history and physical exam differential diagnosis was considered for chest pain including but not limited to myocardial ischemia, pericarditis pulmonary embolus, chest wall pain, pleural inflammation and pulmonary infectious causes.shortness of breath including but not limited to pulmonary infectious process, COPD, asthma, pulmonary embolus and congestive heart failure. (ELVIA XIAO MD) Medical Decision Making Data Points Result Diagram: 04/26/18 1652 04/26/18 1652 Laboratory Hematology Test 04/26/18 16:52 04/26/18 19:51 Red Blood Count 5.62 M/uL (4.00-5.60) Mean Corpuscular Volume 89.8 fL (80.0-96.0) Mean Corpuscular Hemoglobin 31.7 pg (26.0-33.0) Mean Corpuscular Hemoglobin Concent 35.3 g/dL (32.0-36.0) Red Cell Distribution Width 14.0 % (11.5-14.5) Mean Platelet Volume 8.0 fL (7.2-11.1) Neutrophils (%) (Auto) 50.9 % (39.4-72.5) Lymphocytes (%) (Auto) 30.3 % (17.6-49.6) Monocytes (%) (Auto) 15.9 % (4.1-12.4) Eosinophils (%) (Auto) 2.2 % (0.4-6.7) Basophils (%) (Auto) 0.7 % (0.3-1.4) Nucleated RBC Relative Count (auto) 0.2 /100WBC Neutrophils # (Auto) 5.4 K/uL (2.0-7.4) Lymphocytes # (Auto) 3.2 K/uL (1.3-3.6) Monocytes # (Auto) 1.7 K/uL (0.3-1.0) Eosinophils # (Auto) 0.2 K/uL (0.0-0.5) Basophils # (Auto) 0.1 K/uL (0.0-0.1) Nucleated RBC Absolute Count (auto) 0.02 K/uL Sodium Level 140 mmol/L (137-145) Potassium Level 4.2 mmol/L (3.5-5.0) Chloride Level 102 mmol/L (98-107) Carbon Dioxide Level 24 mmol/L (22-30) Blood Urea Nitrogen 13 mg/dl (9-21) Creatinine 0.90 mg/dl (0.66-1.25) Glomerular Filtration Rate Calc > 60.0 Random Glucose 151 mg/dl (75-110) Calcium Level 10.5 mg/dl (8.4-10.2) Total Bilirubin 0.9 mg/dl (0.2-1.3) Aspartate Amino Transf (AST/SGOT) 75 U/L (0-35) Alanine Aminotransferase (ALT/SGPT) 77 U/L (0-56) Alkaline Phosphatase 74 U/L (0-126) Total Protein 8.0 g/dl (6.3-8.2) Albumin 4.6 g/dl (3.5-5.0) Troponin I < 0.012 ng/ml Chemistry Test 04/26/18 16:52 04/26/18 19:51 White Blood Count 10.6 k/uL (4.5-11.0) Red Blood Count 5.62 M/uL (4.00-5.60) Hemoglobin 17.8 g/dL (14.0-18.0) Hematocrit 50.5 % (42.0-52.0) Mean Corpuscular Volume 89.8 fL (80.0-96.0) Mean Corpuscular Hemoglobin 31.7 pg (26.0-33.0) Mean Corpuscular Hemoglobin Concent 35.3 g/dL (32.0-36.0) Red Cell Distribution Width 14.0 % (11.5-14.5) Platelet Count 343 K/uL (150-450) Mean Platelet Volume 8.0 fL (7.2-11.1) Neutrophils (%) (Auto) 50.9 % (39.4-72.5) Lymphocytes (%) (Auto) 30.3 % (17.6-49.6) Monocytes (%) (Auto) 15.9 % (4.1-12.4) Eosinophils (%) (Auto) 2.2 % (0.4-6.7) Basophils (%) (Auto) 0.7 % (0.3-1.4) Nucleated RBC Relative Count (auto) 0.2 /100WBC Neutrophils # (Auto) 5.4 K/uL (2.0-7.4) Lymphocytes # (Auto) 3.2 K/uL (1.3-3.6) Monocytes # (Auto) 1.7 K/uL (0.3-1.0) Eosinophils # (Auto) 0.2 K/uL (0.0-0.5) Basophils # (Auto) 0.1 K/uL (0.0-0.1) Nucleated RBC Absolute Count (auto) 0.02 K/uL Glomerular Filtration Rate Calc > 60.0 Calcium Level 10.5 mg/dl (8.4-10.2) Total Bilirubin 0.9 mg/dl (0.2-1.3) Aspartate Amino Transf (AST/SGOT) 75 U/L (0-35) Alanine Aminotransferase (ALT/SGPT) 77 U/L (0-56) Alkaline Phosphatase 74 U/L (0-126) Total Protein 8.0 g/dl (6.3-8.2) Albumin 4.6 g/dl (3.5-5.0) Troponin I < 0.012 ng/ml (HOUSTON CINTRON DO) EKG/Imaging EKG Interpretation 12 lead EKG: Rhythm: Normal sinus rhythm [place]: Normal QRS: Normal ST segments: Normal rate 80 12 lead EKG repeat at 1752; unchnaged. Rhythm: Normal sinus rhythm [place]: Normal QRS: Normal ST segments: Normal (ELVIA XIAO MD) ED Course/Re-evaluation ED Course Patient is a 47-year-old male who has had chest pain throughout the day. He does have family history of ACS and has a heart score of 3. Given this history will repeat troponin and EKG at 3 hours and reassess. Patient does have completely reproducible chest pain that may be accounting for his symptoms, though will rule out emergent etiologies. Patient is PERC negative, unlikely PE. Chest x-ray without evidence of pneumonia, consider but doubt aortic dissection given not sudden onset radiating to back. Pt became borderline hypotensive after 2nd nitro but responded to IVF. HD stable and comfortable at t/o to Dr. Cintron at 1800 awaiting rpt trop; pt states he can f/u with pcm and understands importance of f/u for stress testing. (ELVIA XIAO MD) ED Course Assumed care at shift change with 2nd diagnostic troponin pending at 1945. Patient with reproducible sternal chest pain. His EKGs are unremarkable. The 1st troponin was unremarkable. Patient's 2nd troponin was unremarkable. He is reassured that symptoms of his chest pain or unlikely related to cardiac etiology. He is advised to follow-up with his primary care doctor for further evaluation and treatment. He is advised ibuprofen for inflammatory pain relief of his chest wall. Decision to Disposition Date: Apr 26, 2018 Decision to Disposition Time: 20:09 (HOUSTON CINTRON DO) Depart Departure Latest Vital Signs Vital Signs Date Time Temp Pulse Resp B/P (MAP) Pulse Ox O2 Delivery O2 Flow Rate FiO2 04/26/18 20:25 68 18 96 04/26/18 20:00 108/71 (83) 04/26/18 16:49 97.5 (HOUSTON CINTRON DO) Impression: Primary Impression: Chest pain of unknown etiology Condition: Improved Disposition: HOME OR SELF-CARE Referrals: MARCELLO JENNINGS MD (PCP) Patient Instructions: Chest Pain (ED) Additional Instructions: Follow-up with primary care within the 2-5 days. ELVIA XIAO MD Apr 26, 2018 17:27 HOUSTON CINTRON DO Apr 26, 2018 20:04
[2018-04-26] MEDS ORDERED: NS(*) 0.9% 1000 ML BAG 1,000 ML IV ONE (17:50)
--- NOTE | 2018-04-26 17:50 | EKG ---
[place] [facility] [place] CHAVA STEVE : [id number] MR: [id number] V: [id number] EXAM DATE: ORDERING PHYSICIAN: ELVIA XIAO TECHNOLOGIST: LORENA Dickerson Reason : CP Blood Pressure : / mmHG Vent. Rate : 080 BPM Atrial Rate : 080 BPM P-R Int : 144 ms QRS Dur : 090 ms QT Int : 376 ms P-R-T Axes : 036 018 014 degrees QTc Int : 433 ms Normal sinus rhythm Normal ECG When compared with ECG of 21-OCT-2017 10:41, Nonspecific T wave abnormality, improved in Inferior leads Confirmed by Tejas Bonilla ([id number]) on 04/26/2018 10:55:11 PM Referred By: Confirmed By:Tejas Shore
--- NOTE | 2018-04-26 17:56 | EKG ---
FACILITY: [facility] - [place] PATIENT NAME: CHAVA STEVE : [id number] MR: [id number] V: [id number] EXAM DATE: ORDERING PHYSICIAN: ELVIA XIAO TECHNOLOGIST: LORENA Dickerson Reason : REPEAT-CHESTPAIN Blood Pressure : / mmHG Vent. Rate : 078 BPM Atrial Rate : 078 BPM P-R Int : 142 ms QRS Dur : 092 ms QT Int : 384 ms P-R-T Axes : 011 009 002 degrees QTc Int : 437 ms Normal sinus rhythm Normal ECG When compared with ECG of 26-APR-2018 16:53, No significant change was found Confirmed by Tejas Bonilla ([id number]) on 04/26/2018 10:55:41 PM Referred By: DAMEON Confirmed By:Tejas Shore
--- NOTE | 2018-04-26 18:24 | RADIOLOGY IMAGING REPORT ---
FACILITY: [facility] - [place] PATIENT NAME: Channing Snyder : 1970 MR: [id number] V: [id number] EXAM DATE: ORDERING PHYSICIAN: ELVIA XIAO TECHNOLOGIST: Location: [facility] Patient: Channing Snyder : 1970 Visit/Account:[id number] Date of Sevice: 04/26/2018 2 VIEWS CHEST INDICATION: Chest pain and cough. COMPARISON: To 15/12/2017. FINDINGS: Cardiomediastinal silhouette and pulmonary vessels within normal limits. There is no focal infiltrate or lobar consolidation. There is no pneumothorax or pleural effusion. No nodule. Upper abdomen is unremarkable. No acute bony abnormality. IMPRESSION: 1. No acute cardiopulmonary process. Report Dictated By: Aydin Moss at 04/26/2018 6:19 PM Report E-Signed By: Aydin Moss at 04/26/2018 6:21 PM WSN:[id number]
[2018-04-26 20:00] VITALS: BP 108/71
== END 2018-04-26 20:30 | disposition home or self-care (01) ==
LOC: ER 16:55
DX: R07.9 Chest pain, unspecified (principal)
CPT/HCPCS: 36415; 84484; 85025; 93005; 96360; 99283; J7030; 71046; 82040; 82247; 82310; 82374; 82435; 82565; 82947; 84075; 84132; 84155; 84295; 84450; 84460; 84520

== ENCOUNTER → 2018-08-22 | Outpatient (CLI) | payer MEDICAID ==
[2016-08-17 12:41] VITALS: BMI 39.9
[~2018-08-22] MED LIST changes: +AMLO-111 PO; -AMLO-96 PO; +HYDR-385 PO; -HYDR-4309 PO; +HYDR-653 PO
== END ==
LOC: AMB 16:21
PROVIDERS: ATTEND Nurse Practitioner
DX: M25.561 Pain in right knee (principal); M25.571 Pain in right ankle and joints of right foot
CPT/HCPCS: A0425; A0429

== ENCOUNTER 2018-11-04 12:40 | Emergency (ER) | payer MEDICAID ==
[2016-08-17 12:41] VITALS: Wt 114.3 kg
[~2018-11-04 12:40] MED LIST changes: -AMLO-111 PO; +AMLO-125 PO
--- NOTE | 2018-11-04 12:47 | ER Report ---
History and Physical Time Seen By MD: 12:47 HPI/ROS Cough, chest pain, and myalgias for 2-3 days. This morning with one episode of hemoptysis. No history of CHF or TB. No night seats or weight loss. Describes blood-tinged sputum. No hematemeis or hematochezia. No fever/chills. No abdominal pain. Remainder of the 14 system rev: Yes Allergies: Coded Allergies: tramadol (Verified Allergy, Mild, RASH, 11/04/18) Home Meds Active Scripts Albuterol Sulfate (PROVENTIL HFA) 6.7 Gm Inh, 1-2 PUFF INH 3-4XD for 10 Days, #1 INH Prov:KATHERINE XIAO MD 11/04/18 Reported Medications Indomethacin (INDOMETHACIN) 50 Mg Capsule, 50 MG PO TID PRN for prn, CAPSULE 02/27/18 Allopurinol (ALLOPURINOL) 100 Mg Tablet, 600 MG PO QDAY, TAB 02/27/18 Venlafaxine Hcl (EFFEXOR XR) 75 Mg Cap.er.24h, 75 MG PO QDAY 02/27/18 Atorvastatin Calcium (ATORVASTATIN CALCIUM) 10 Mg Tablet, 1 TAB PO HS, TAB 02/27/18 Ibuprofen (IBUPROFEN) 200 Mg Capsule, 1-2 CAP PO Q6H PRN for prn, CAPSULE 02/27/18 Gabapentin (GABAPENTIN) 100 Mg Capsule, 1 TAB PO TID 01/08/17 Reviewed Nurses Notes: Yes Old Medical Records Reviewed: Yes Hx Smoking: No Smoking Status: Never Smoker Exposure to Second Hand Smoke?: No Hx Substance Use Disorder: No Hx Alcohol Use: Yes (says rarely, did today because of of sister) Constitutional Vital Sign - Last 24 Hours 11/04/18 11/04/18 11/04/18 11/04/18 12:45 13:17 13:17 13:24 Temp 98.4 Pulse 109 101 114 Resp 20 16 16 B/P (MAP) 127/82 Pulse Ox 92 90 O2 Delivery Room Air Room Air Physical Exam General Appearance: The patient is alert, has no immediate need for airway protection and no current signs of toxicity. Eyes: Pupils equal and round no injection. Respiratory: Chest is non tender, lungs are clear to auscultation. Cardiac: regular rate and rhythm Gastrointestinal: Abdomen is soft and non tender, no masses, bowel sounds normal. Neck: Neck is supple and non tender. Skin: No rashes or lesions. DIFFERENTIAL DIAGNOSIS: After history and physical exam differential diagnosis was considered for shortness of breath including but not limited to pulmonary infectious process, COPD, asthma, pulmonary embolus and congestive heart failure. Medical Decision Making Data Points Result Diagram: 11/04/18 1314 11/04/18 1314 Laboratory Hematology Test 11/04/18 13:14 Red Blood Count 5.04 M/uL (4.00-5.60) Mean Corpuscular Volume 92.4 fL (80.0-96.0) Mean Corpuscular Hemoglobin 31.2 pg (26.0-33.0) Mean Corpuscular Hemoglobin Concent 33.8 g/dL (32.0-36.0) Red Cell Distribution Width 13.7 % (11.5-14.5) Mean Platelet Volume 7.9 fL (7.2-11.1) Neutrophils (%) (Auto) 74.8 % (39.4-72.5) Lymphocytes (%) (Auto) 17.2 % (17.6-49.6) Monocytes (%) (Auto) 6.3 % (4.1-12.4) Eosinophils (%) (Auto) 1.1 % (0.4-6.7) Basophils (%) (Auto) 0.6 % (0.3-1.4) Nucleated RBC Relative Count (auto) 0.0 /100WBC Neutrophils # (Auto) 9.1 K/uL (2.0-7.4) Lymphocytes # (Auto) 2.1 K/uL (1.3-3.6) Monocytes # (Auto) 0.8 K/uL (0.3-1.0) Eosinophils # (Auto) 0.1 K/uL (0.0-0.5) Basophils # (Auto) 0.1 K/uL (0.0-0.1) Nucleated RBC Absolute Count (auto) 0.00 K/uL Sodium Level 138 mmol/L (137-145) Potassium Level 4.0 mmol/L (3.5-5.0) Chloride Level 103 mmol/L (98-107) Carbon Dioxide Level 22 mmol/L (22-30) Blood Urea Nitrogen 11 mg/dl (9-21) Creatinine 0.80 mg/dl (0.66-1.25) Glomerular Filtration Rate Calc > 60.0 Random Glucose 250 mg/dl (75-110) Calcium Level 9.9 mg/dl (8.4-10.2) Total Bilirubin 0.9 mg/dl (0.2-1.3) Aspartate Amino Transf (AST/SGOT) 54 U/L (0-35) Alanine Aminotransferase (ALT/SGPT) 62 U/L (0-56) Alkaline Phosphatase 89 U/L (0-126) Troponin I < 0.012 ng/ml B-Type Natriuretic Peptide < 5 pg/ml (0-100) Total Protein 6.9 g/dl (6.3-8.2) Albumin 4.0 g/dl (3.5-5.0) Chemistry Test 11/04/18 13:14 White Blood Count 12.2 k/uL (4.5-11.0) Red Blood Count 5.04 M/uL (4.00-5.60) Hemoglobin 15.7 g/dL (14.0-18.0) Hematocrit 46.6 % (42.0-52.0) Mean Corpuscular Volume 92.4 fL (80.0-96.0) Mean Corpuscular Hemoglobin 31.2 pg (26.0-33.0) Mean Corpuscular Hemoglobin Concent 33.8 g/dL (32.0-36.0) Red Cell Distribution Width 13.7 % (11.5-14.5) Platelet Count 252 K/uL (150-450) Mean Platelet Volume 7.9 fL (7.2-11.1) Neutrophils (%) (Auto) 74.8 % (39.4-72.5) Lymphocytes (%) (Auto) 17.2 % (17.6-49.6) Monocytes (%) (Auto) 6.3 % (4.1-12.4) Eosinophils (%) (Auto) 1.1 % (0.4-6.7) Basophils (%) (Auto) 0.6 % (0.3-1.4) Nucleated RBC Relative Count (auto) 0.0 /100WBC Neutrophils # (Auto) 9.1 K/uL (2.0-7.4) Lymphocytes # (Auto) 2.1 K/uL (1.3-3.6) Monocytes # (Auto) 0.8 K/uL (0.3-1.0) Eosinophils # (Auto) 0.1 K/uL (0.0-0.5) Basophils # (Auto) 0.1 K/uL (0.0-0.1) Nucleated RBC Absolute Count (auto) 0.00 K/uL Glomerular Filtration Rate Calc > 60.0 Calcium Level 9.9 mg/dl (8.4-10.2) Total Bilirubin 0.9 mg/dl (0.2-1.3) Aspartate Amino Transf (AST/SGOT) 54 U/L (0-35) Alanine Aminotransferase (ALT/SGPT) 62 U/L (0-56) Alkaline Phosphatase 89 U/L (0-126) Troponin I < 0.012 ng/ml B-Type Natriuretic Peptide < 5 pg/ml (0-100) Total Protein 6.9 g/dl (6.3-8.2) Albumin 4.0 g/dl (3.5-5.0) EKG/Imaging EKG Interpretation 12 lead EKG: Rhythm: normal sinus rhythm [place]: normal QRS: normal ST segments: normal T wave flattening in the inferior and lateral leads. This is the same as previous EKGs. ED Course/Re-evaluation ED Course constant chest pain for almost 24 hours with normal troponin. EKG at baseline. CXR WNL. No history of TB or recent travel. Chest pain likely secondary to coughing. Coughing likely caused one episode of hemoptysis. Better after duoneb. Will give albuterol MDI for likely viral bronchitis. Decision to Disposition Date: Nov 04, 2018 Decision to Disposition Time: 15:47 Depart Departure Latest Vital Signs Vital Signs Date Time Temp Pulse Resp B/P (MAP) Pulse Ox O2 Delivery O2 Flow Rate FiO2 11/04/18 13:24 114 16 11/04/18 13:17 90 Room Air 11/04/18 12:45 98.4 127/82 Impression: Primary Impression: Viral upper respiratory infection Condition: Improved Disposition: HOME OR SELF-CARE Referrals: MARCELLO JENNINGS MD (PCP) New Scripts Albuterol Sulfate (PROVENTIL HFA) 6.7 Gm Inh 1-2 PUFF INH 3-4XD for 10 Days, #1 INH Prov: KATHERINE XIAO MD 3/10/19 Departure Forms: ER Transition Record, Medications Reconciliation, Patient Portal Information Patient Instructions: Viral Syndrome (ED) KATHERINE XIAO MD Nov 04, 2018 12:47
[2018-11-04] MEDS ORDERED: ALBUTEROL/IPRATROPIUM 3 ML NEB NEB ONE (12:55)
[2018-11-04 13:24] LABS: PLATELET COUNT, AUTOMATED 252 K/uL (150-450)
--- NOTE | 2018-11-04 13:28 | EKG ---
FACILITY: [facility] PATIENT NAME: CHAVA STEVE : [id number] MR: [id number] V: [id number] EXAM DATE: ORDERING PHYSICIAN: KATHERINE XIAO TECHNOLOGIST: SONYA Test Reason : SOB Blood Pressure : / mmHG Vent. Rate : 103 BPM Atrial Rate : 103 BPM P-R Int : 134 ms QRS Dur : 096 ms QT Int : 344 ms P-R-T Axes : 029 054 -12 degrees QTc Int : 450 ms Sinus tachycardia T wave abnormality, consider inferior ischemia Abnormal ECG When compared with ECG of 26-APR-2018 17:52, Nonspecific T wave abnormality now evident in Lateral leads Confirmed by MARCELLO REYNA ([id number]) on 11/05/2018 2:09:04 AM Referred By: DAMEON Confirmed By:MARCELLO REYNA
[2018-11-04] MEDS ORDERED: NS(*) 0.9% 1000 ML BAG 1,000 ML IV ONE (13:40)
--- NOTE | 2018-11-04 13:51 | RADIOLOGY IMAGING REPORT ---
FACILITY: [facility] [place] PATIENT NAME: Channing Snyder : 1970 MR: [id number] V: [id number] EXAM DATE: ORDERING PHYSICIAN: KATHERINE XIAO TECHNOLOGIST: Location: [facility] Patient: Channing Snyder : 1970 Visit/Account:[id number] Date of Sevice: 11/04/2018 Technique: CHEST PA LAT HISTORY: Hemoptysis COMPARISON: Chest radiographs 04/26/2018 Findings: The lungs are clear. No pleural effusion or pneumothorax. The cardiomediastinal silhouett e is unchanged. Impression: 1. No acute cardiopulmonary process. Report Dictated By: Juaquin Singleton DO at 11/04/2018 1:47 PM Report E-Signed By: Juaquin Singleton DO at 11/04/2018 1:48 PM WSN:[id number]
[2018-11-04 15:00] VITALS: BP 106/66
[2018-11-04] MEDS ORDERED: ALB6.7R INH (15:35)
== END 2018-11-04 15:50 | disposition home or self-care (01) ==
LOC: ER 12:52
DX: J06.9 Acute upper respiratory infection, unspecified (principal); R06.02 Shortness of breath
CPT/HCPCS: 71046; 83880; 84484; 85025; 93005; 94640; 96360; 99284; J7030; J7620; 82040; 82247; 82310; 82374; 82435; 82565; 82947; 84075; 84132; 84155; 84295; 84450; 84460; 84520

== ENCOUNTER 2018-12-07 17:29 | Emergency (ER) | payer MEDICAID ==
[2016-08-17 12:41] VITALS: Wt 110.7 kg
[~2018-12-07 17:29] MED LIST changes: +ALB6.7R INH
--- NOTE | 2018-12-07 17:46 | ER Report ---
History and Physical Time Seen By MD: 17:46 Hx. of Stated Complaint: PT REPORTS R SHOULDER/UPPER BACK PAIN, NO KNOWN INJURIES. PT REPORTS HE TOOK 500MG NAPROXEN AT 1200 HPI/ROS CHIEF COMPLAINT: Right upper shoulder and neck pain HISTORY OF PRESENT ILLNESS: This is a 48-year-old male presents to the emergency department for right upper back and right shoulder muscular pain. Patient states over the last week or so he's had increased pain in his right neck and upper shoulder along the scapula. No recent injuries or falls. States light touch and turning his head to the right increases the pain in his shoulder. No chest pain or shortness of breath. No nausea or vomiting. No other complaints. No rashes. REVIEW OF SYSTEMS: Respiratory: No cough, no dyspnea. Cardiovascular: No chest pain, no palpitations. Gastrointestinal: No vomiting, no abdominal pain. Musculoskeletal: As above. Allergies: Coded Allergies: tramadol (Verified Allergy, Mild, RASH, 12/07/18) Home Meds Active Scripts Cyclobenzaprine Hcl (CYCLOBENZAPRINE HCL) 10 Mg Tablet, 5-10 MG PO TID PRN for MUSCLE SPASMS, #9 TAB Prov:YUKI HOLM RN [employer] 12/07/18 Albuterol Sulfate (PROVENTIL HFA) 6.7 Gm Inh, 1-2 PUFF INH 3-4XD for 10 Days, #1 INH Prov:KATHERINE XIAO MD 11/04/18 Reported Medications Indomethacin (INDOMETHACIN) 50 Mg Capsule, 50 MG PO TID PRN for prn, CAPSULE 02/27/18 Allopurinol (ALLOPURINOL) 100 Mg Tablet, 600 MG PO QDAY, TAB 02/27/18 Venlafaxine Hcl (EFFEXOR XR) 75 Mg Cap.er.24h, 75 MG PO QDAY 02/27/18 Atorvastatin Calcium (ATORVASTATIN CALCIUM) 10 Mg Tablet, 1 TAB PO HS, TAB 02/27/18 Ibuprofen (IBUPROFEN) 200 Mg Capsule, 1-2 CAP PO Q6H PRN for prn, CAPSULE 02/27/18 Gabapentin (GABAPENTIN) 100 Mg Capsule, 1 TAB PO TID 01/08/17 Past Medical/Surgical History The patient has a past medical and surgical history of absence seizures, headaches, "hole in heart", "heart attack", angina, sleep apnea, hypertension, hypercholesterolemia, asthma, pneumonia, GERD, gout, arthritis, wrist fracture, lead fracture, foot fracture, low back pain, infection in his eye, wears glasses, hard of hearing, depression, anxiety, right wrist surgery. Reviewed Nurses Notes: Yes Hx Smoking: No Smoking Status: Never Smoker Exposure to Second Hand Smoke?: No Hx Substance Use Disorder: No Hx Alcohol Use: No (says rarely, did today because of of sister) Constitutional Vital Sign - Last 24 Hours 12/07/18 12/07/18 17:30 18:11 Temp 97.9 Pulse 87 71 Resp 16 16 B/P (MAP) 120/91 121/77 (92) Pulse Ox 90 93 O2 Delivery Room Air Room Air Physical Exam General Appearance: The patient is alert, has no immediate need for airway protection and no current signs of toxicity. Eyes: Pupils equal and round no injection. Respiratory: Chest is non tender, lungs are clear to auscultation. Cardiac: regular rate and rhythm [ ] Gastrointestinal: Abdomen is soft and non tender, no masses, bowel sounds normal. Musculoskeletal: Neck: Pain along the right trapezius muscle, into the scapula, with light palpation, increased with firm palpation. No crepitus or rashes or deformities identified. Extremities have full range of motion and are non tender. Skin: No rashes or lesions. DIFFERENTIAL DIAGNOSIS: After history and physical exam differential diagnosis was considered for shingles, myocardial infarction,, disease, pneumonia, torticollis, muscle spasm. Medical Decision Making ED Course/Re-evaluation ED Course The patient was admitted to a room. A history and physical were obtained. Differential diagnoses were considered. After speaking with patient, so is no dramatic injury, no x-rays were ordered at this time, patient was agreeable. We discussed starting out with muscle relaxer as the muscles seem to be concerning to the majority of his discomfort, I did recommend following up with his primary care provider next week for reevaluation, patient was agreeable with this plan of care and discharged home. Decision to Disposition Date: Dec 07, 2018 Decision to Disposition Time: 18:19 Depart Departure Latest Vital Signs Vital Signs Date Time Temp Pulse Resp B/P (MAP) Pulse Ox O2 Delivery O2 Flow Rate FiO2 12/07/18 18:11 71 16 121/77 (92) 93 Room Air 12/07/18 17:30 97.9 Impression: Primary Impression: Muscle spasm Condition: Improved Disposition: HOME OR SELF-CARE Referrals: MARCELLO JENNINGS MD (PCP) 5 Days New Scripts Cyclobenzaprine Hcl (CYCLOBENZAPRINE HCL) 10 Mg Tablet 5-10 MG PO TID PRN for MUSCLE SPASMS, #9 TAB Prov: YUKI HOLM 12/07/18 Patient Instructions: Muscle Cramp (ED), Muscle Spasm (ED) Additional Instructions: Try the flexeril for muscle pain and spasms. Please follow up with Dr. Talley next week for reevaluation. Drink plenty of water. Get plenty of rest. Try a warm pack to the area that is causing the most pain. Return to the ED for any other concerns or worsening symptoms. YUKI HOLM-ANA MARIA Dec 07, 2018 17:46
[2018-12-07] MEDS ORDERED: ORPHENADRINE 60MG/2ML INJ IM ONE (18:05)
[2018-12-07 18:11] VITALS: BP 121/77
[2018-12-07] MEDS ORDERED: CYCL10TA29 PO (18:22)
== END 2018-12-07 18:28 | disposition home or self-care (01) ==
LOC: ER 17:40
DX: M62.830 Muscle spasm of back (principal)
CPT/HCPCS: 96372; 99283; J2360

== ENCOUNTER 2019-02-04 22:53 | Emergency (ER) | payer MEDICAID ==
[2016-08-17 12:41] VITALS: Wt 110.9 kg
[~2019-02-04 22:53] MED LIST changes: -OMEP-125 PO; +OMEP-126 PO; -RANI-366 PO; +RANI-54 PO
--- NOTE | 2019-02-04 23:08 | ER Report ---
History and Physical Time Seen By MD: 23:08 HPI/ROS CHIEF COMPLAINT: headache HISTORY OF PRESENT ILLNESS: This is a 48 year old male. He has had a migraine headache since . Similar to other migraines. The only difference was a little numbness in left arm the other day which has resolved. Photophobia, nausea with vomiting, scalp tenderness all with past headaches are present now. Diffuse pain. denies fevers or chills, but has had some cough recently. No shortness of breath. Has some pain in bilateral knees. otherwise negative. Allergies: Coded Allergies: tramadol (Verified Allergy, Mild, RASH, 12/07/18) Home Meds Active Scripts Promethazine Hcl (PROMETHAZINE HCL) 25 Mg Tablet, 25 MG PO Q8H PRN for HEADACHE, #20 TAB 0 Refills Prov:ERNESTO GUZMAN MD 02/05/19 Ketorolac Tromethamine (KETOROLAC TROMETHAMINE) 10 Mg Tab, 10 MG PO Q6H PRN for PAIN, #12 TAB 0 Refills Prov:ERNESTO GUZMAN MD 02/05/19 Cyclobenzaprine Hcl (CYCLOBENZAPRINE HCL) 10 Mg Tablet, 5-10 MG PO TID PRN for MUSCLE SPASMS, #9 TAB Prov:YUKI HOLM [employer]-BC 12/07/18 Albuterol Sulfate (PROVENTIL HFA) 6.7 Gm Inh, 1-2 PUFF INH 3-4XD for 10 Days, #1 INH Prov:KATHERINE XIAO MD 11/04/18 Reported Medications Indomethacin (INDOMETHACIN) 50 Mg Capsule, 50 MG PO TID PRN for prn, CAPSULE 02/27/18 Allopurinol (ALLOPURINOL) 100 Mg Tablet, 600 MG PO QDAY, TAB 02/27/18 Venlafaxine Hcl (EFFEXOR XR) 75 Mg Cap.er.24h, 75 MG PO QDAY 02/27/18 Atorvastatin Calcium (ATORVASTATIN CALCIUM) 10 Mg Tablet, 1 TAB PO HS, TAB 02/27/18 Ibuprofen (IBUPROFEN) 200 Mg Capsule, 1-2 CAP PO Q6H PRN for prn, CAPSULE 02/27/18 Gabapentin (GABAPENTIN) 100 Mg Capsule, 1 TAB PO TID 01/08/17 Reviewed Nurses Notes: Yes Hx Smoking: No Smoking Status: Never Smoker Exposure to Second Hand Smoke?: No Hx Substance Use Disorder: No Hx Alcohol Use: No (says rarely, did today because of of sister) Constitutional Vital Sign - Last 24 Hours 02/04/19 02/04/19 02/04/19 02/05/19 23:09 23:09 23:30 00:00 Temp 98.1 Pulse 79 100 Resp 18 B/P (MAP) 127/75 (92) 127/75 130/88 (102) 120/79 (93) Pulse Ox 90 88 O2 Delivery Room Air 02/05/19 02/05/19 00:30 01:00 Pulse 80 B/P (MAP) 122/76 (91) 120/70 (87) Physical Exam General Appearance: Alert, no distress. Eyes: Pupils equal and round no injection. Extraocualr movements are intact. Reactive to light. PHotophobia. ENT: Normal oral mucosa. Moist mucous membranes. Tympanic membranes are normal. Neck: Neck is supple and non tender. Respiratory: Chest is non tender, lungs are clear to auscultation. Cardiac: regular rate and rhythm Gastrointestinal: Abdomen is soft and non tender, no masses, bowel sounds normal. Musculoskeletal: Extremities have full range of motion. Skin: No rashes or lesions. DIFFERENTIAL DIAGNOSIS: After history and physical exam differential diagnosis was considered for migraine headache. Medical Decision Making ED Course/Re-evaluation Clinical Indication for ER IV: Hydration, IV Access ED Course Offered the patient to do labs and CT scan, however he would prefer just to treat and see if we can resolve symptoms. Benadryl, Phenergan, and Toradol given as well as a liter of normal saline. He felt alot better, headache not completely gone. He will return if not improving for further workup, but prefers to go home and try to sleep at this time. Decision to Disposition Date: Feb 05, 2019 Decision to Disposition Time: 01:03 Depart Departure Latest Vital Signs Vital Signs Date Time Temp Pulse Resp B/P (MAP) Pulse Ox O2 Delivery O2 Flow Rate FiO2 02/05/19 01:00 120/70 (87) 02/05/19 00:30 80 02/04/19 23:30 88 02/04/19 23:09 98.1 18 Room Air Impression: Primary Impression: Migraine Condition: Improved Disposition: HOME OR SELF-CARE Referrals: MARCELLO JENNINGS MD (PCP) New Scripts Promethazine Hcl (PROMETHAZINE HCL) 25 Mg Tablet 25 MG PO Q8H PRN for HEADACHE, #20 TAB 0 Refills Prov: ERNESTO GUZMAN MD 02/05/19 Ketorolac Tromethamine (KETOROLAC TROMETHAMINE) 10 Mg Tab 10 MG PO Q6H PRN for PAIN, #12 TAB 0 Refills Prov: ERNESTO GUZMAN MD 02/05/19 Patient Instructions: Migraine Headache (ED) Problem Qualifiers Primary Impression: Migraine Migraine type: unspecified Status migrainosus presence: without status migrainosus Intractability: not intractable Qualified Codes: G43.909 - Migraine, unspecified, not intractable, without status migrainosus ERNESTO GUZMAN MD Feb 04, 2019 23:08
[2019-02-04] MEDS ORDERED: KETOROLAC 30 MG/ML VIAL IVP ONE (23:35)
[2019-02-04] MEDS ORDERED: diphenhydrAMINE 50 MG/ML VIAL IVP ONE (23:35)
[2019-02-04] MEDS ORDERED: NS(*) 0.9% 1000 ML BAG 1,000 ML IV ONE (23:35)
[2019-02-04] MEDS ORDERED: PROMETHAZINE 25 MG/ML 1 ML AMP IVP ONE (23:35)
[2019-02-05 01:00] VITALS: BP 120/70
[2019-02-05] MEDS ORDERED: PROMETHAZINE HCL 25 MG TAB TH 2 TAB/BOTTLE PO ONE (01:05)
[2019-02-05] MEDS ORDERED: KETOROLAC TROM 10 MG TAB TH PO ONE (01:05)
[2019-02-05] MEDS ORDERED: PROM-110 PO (01:05)
[2019-02-05] MEDS ORDERED: KET10 PO (01:05)
== END 2019-02-05 01:29 | disposition home or self-care (01) ==
LOC: ER 23:21
DX: G43.909 Migraine, unspecified, not intractable, without status migrainosus (principal)
CPT/HCPCS: 96360; 96374; 96375; 99284; J1200; J1885; J2550; J7030

== ENCOUNTER → 2019-03-29 | Outpatient (CLI) | payer MEDICAID ==
[2016-08-17 12:41] VITALS: BMI 39.9
== END ==
LOC: ZZSENDIN 14:55
PROVIDERS: ATTEND Family Medicine
DX: M25.561 Pain in right knee (principal)
CPT/HCPCS: 85379